=== PATIENT | male | born 1985 | race Caucasian/White ===

== ENCOUNTER 2017-02-17 10:56 | Emergency (ER) | payer SELFPAY ==
[~2017-02-17] VITALS: Ht 172.7 cm; Wt 97.7 kg
[2017-02-17 11:28] LABS: BASO # 0.1 x10^3/uL (0.0-0.2); BASO % 1 % (0-3); EOS # 0.2 x10^3/uL (0.0-0.7); EOS % 2 % (0-3); HEMATOCRIT 48.8 % (39.0-53.0); HEMOGLOBIN 16.9 g/dL (13.0-17.5); LYMPH # 1.6 x10^3/uL (1.0-4.8); LYMPH % 15 % (24-48); MEAN CORPUSCULAR HEMOGLOBIN 28 pg (25-35); MEAN CORPUSCULAR HGB CONC 35 g/dL (31-37); MEAN CORPUSCULAR VOLUME 82 fL (79-100); MONO # 0.8 x10^3/uL (0.0-1.1); MONO % 7 % (0-9); NEUT # 8.4 x10^3uL (1.8-7.7); NEUT % 76 % (31-73); PLATELET COUNT 246 x10^3/uL (140-400); RED BLOOD COUNT 5.94 x10^6/uL (4.30-5.70); RED CELL DISTRIBUTION WIDTH 13.6 % (11.5-14.5); WHITE BLOOD COUNT 11.1 x10^3/uL (4.0-11.0)
[2017-02-17] MEDS ORDERED: ONDANSETRON PF 4 MG/2 ML VIAL. IV ONE (11:30)
[2017-02-17] MEDS ORDERED: FAMOTIDINE 20 MG/2 ML VIAL IVP ONE (11:30)
[2017-02-17] MEDS ORDERED: KETOROLAC 30 MG/ML VIAL. IV ONE (11:30)
[2017-02-17] MEDS ORDERED: PROMETHAZINE 25 MG in IV NORMAL SALINE 50ML 50 ML IV PRN (11:30)
[2017-02-17] MEDS ORDERED: IV NORMAL SALINE 1,000ML 1,000 ML IV SCH (11:30)
[2017-02-17 11:40] LABS: ALBUMIN 4.5 g/dL (3.4-5.0); ALBUMIN/GLOBULIN RATIO 1.2 (1.0-1.7); CREATININE 1.5 mg/dL (0.7-1.3); GFR 53.9; POTASSIUM 4.7 mmol/L (3.5-5.1); TOTAL BILIRUBIN 0.4 mg/dL (0.2-1.0); TOTAL PROTEIN 8.3 g/dL (6.4-8.2)
--- NOTE | 2017-02-17 12:10 | RAD ---
Acute abdomen series History: Nausea, vomiting, diarrhea, weakness. Comparison: Abdomen radiograph 10/31/2014. Findings: Frontal view of the chest. Cardiac silhouette appears within normal limits for size. No pneumoperitoneum or pneumothorax is identified. No acute infiltrate is seen. Supine and upright views of the abdomen. No dilated loops of bowel are seen. Impression: No acute abnormality identified in the chest or abdomen.
[2017-02-17] MEDS: MORPHINE SULFATE 4 MG/ML DISP.SYRIN. IV/SQ PRN ×2 (12:14→12:58)
--- NOTE | 2017-02-17 12:23 | PHYS DOC ---
General Chief Complaint: ABDOMINAL PAIN Stated Complaint: N/V/D Time Seen by MD: 11:05 Source: patient, old records Exam Limitations: no limitations Problems: History of Present Illness Initial Comments Patient is a 31-year-old male who comes in the ED complaining of abdominal discomfort and nausea and vomiting. Patient states that very early this morning he awoke with nausea and lower abdominal discomfort. He reports nausea and vomiting since that time with by mouth intolerance. He has lower abdominal/left lower abdominal discomfort with a few watery stools this morning as well. She has not noted any blood in his emesis or his stools, denies recent travel or bad food exposure no insect bites or measured temperatures. He has had body aches chills appetite is intact however he hasn't eaten due to the nausea and vomiting. No pre-arrival treatment no known relationship of types of by mouth. No prior abdominal surgeries he has history of gastroenteritis in 2015 he was seen here records were reviewed. Patient states his symptoms are nearly identical to those he experienced in 2015 with a stomach virus. At that time CT scan was negative, I discussed imaging with the patient he feels unnecessary at this time have symptoms so mimicked his prior gastroenteritis. Timing/Duration: 4-6 hours Severity: severe Modifying Factors: worse with eating, improves with medication Associated Symptoms: diaphoresis, fever/chills, headaches, malaise, nausea/ vomiting, other Allergies: Coded Allergies: amoxicillin (Unverified Allergy, Unknown, 10/31/14) told by his mother Past Medical History Medical History: other (hypothyroidism, migraine headaches) Surgical History: other (right foot fracture repair) Social History Smoker: cigarettes Alcohol: occasionally Drugs: none Review of Systems Constitutional: see HPI Respiratory: denies cough, denies shortness of breath, denies wheezing Cardiovascular: denies chest pain, denies palpitations, denies syncope Gastrointestinal: see HPI Genitourinary: denies dysuria, denies frequency, denies hematuria Musculoskeletal: back pain, denies joint swelling, muscle pain, denies neck pain Psychiatric/Neurological: headache, denies numbness, denies paresthesia, denies weakness Hematologic/Lymphatic: denies blood clots, denies easy bleeding, denies easy bruising Physical Exam General Appearance: WD/WN, moderate distress Eyes: bilateral eye normal inspection, bilateral eye PERRL, bilateral eye EOMI Ear, Nose, Throat: hearing grossly normal, normal ENT inspection (dry membranes ) Neck: non-tender, supple Respiratory: normal breath sounds, no respiratory distress Cardiovascular: normal peripheral pulses, regular rate, rhythm Gastrointestinal: soft (nondistended, lower abdominal diffuse discomfort without focality negative McBurney and negative Arroyo, no masses or organomegaly noted.) Rectal: deferred Back: no CVA tenderness, no vertebral tenderness Extremities: non-tender, normal inspection 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 PHYSICIAN: FRANCIE CATHERINE DO REASON: n/v/d PROCEDURE: ACUTE ABDOMEN SERIES Acute abdomen series History: Nausea, vomiting, diarrhea, weakness. Comparison: Abdomen radiograph 10/31/2014. Findings: Frontal view of the chest. Cardiac silhouette appears within normal limits for size. No pneumoperitoneum or pneumothorax is identified. No acute infiltrate is seen. Supine and upright views of the abdomen. No dilated loops of bowel are seen. Impression: No acute abnormality identified in the chest or abdomen. DICTATED AND SIGNED BY: MARGA STEEL MD DATE: 02/17/17 1206 CC: PCP,NO; FRANCIE CATHERINE DO ~ Pertinent labs: WBC 11.1, BUN 11, creatinine 1.5 1238: Nausea vomiting relieved with antiemetics, patient still feels mildly nauseous but no further emesis. Discomfort has improved to 1/10, he is doing much better. We'll discharge home with antibiotics and dicyclomine as well as instructions for oral hydration and follow-up. Advised to stop smoking. Departure Time of Disposition: 12:40 Disposition: HOME, SELF-CARE Diagnosis: gastroenteritis, renal insuff, tobaccoism Condition: STABLE Patient Instructions: Smoking Hazards, Viral Gastroenteritis, [id number] Additional Instructions: Rest no strenuous activity. Off work through February 21. Clear liquids advance to bland diet slowly as tolerated. Aggressive hydration with Gatorade or water. Stop smoking seek medical assistance if necessary. Prescriptions: Zofran ODT for nausea vomiting, Phenergan suppositories for intractable vomiting, dicyclomine for cramping. Follow-up with your doctor on Tuesday for recheck of your symptoms and kidney function blood tests. Return to the ED with new or changing symptoms FRANCIE CATHERINE DO Feb 17, 2017 12:23
[2017-02-17] MEDS ORDERED: DICY20TA3 PO (12:42)
[2017-02-17] MEDS ORDERED: ONDA4TAB10 PO (12:42)
[2017-02-17] MEDS ORDERED: PROM25SU32 RC (12:42)
[2017-02-17] MEDS ORDERED: DICYCLOMINE 20 MG/2 ML AMPUL. IM ONE (12:45)
[2017-02-17 13:15] VITALS: BP 152/80
== END 2017-02-17 13:25 | disposition home or self-care (01) ==
LOC: ER 10:56
DX: K52.9 Noninfective gastroenteritis and colitis, unspecified (principal); N28.9 Disorder of kidney and ureter, unspecified; E03.9 Hypothyroidism, unspecified; G43.909 Migraine, unspecified, not intractable, without status migrainosus; F17.210 Nicotine dependence, cigarettes, uncomplicated; Z88.1 Allergy status to other antibiotic agents
CPT/HCPCS: 36415; 74022; 80053; 83690; 85027; 96365; 96372; 96375; 96376; 99285; G0480; J0500; J1885; J2270; J2405; J2550; S0028; J7030

== ENCOUNTER 2021-05-05 20:45 | Inpatient (IN) | payer SELFPAY ==
[~2021-05-05] VITALS: Ht 170.2 cm; Wt 91.7 kg
[~2021-05-05 20:45] MED LIST: DICY20TA3 PO; ONDA4TAB10 PO; PROM25SU32 RC
--- NOTE | 2021-05-05 21:19 | PHYS DOC ---
Past History Past Medical History: Other Past Surgical History: No Surgical History Smoking: Cigarettes Alcohol Use: None Drug Use: None Adult General Chief Complaint Chief Complaint: ABDOMINAL PAIN HPI HPI Patient is a 36-year-old male who presents with a chief complaint of left-sided flank pain 7 out of 10, sharp in nature, nausea and vomiting over the course of the day. States he never had anything like this before. Denies any fevers, chest pain, shortness of breath, dysuria, hematuria, blood in the stool or diarrhea. Denies any Covid/flu/cold symptoms. Denies any recent traumas, travels, known ill contacts. Review of Systems Review of Systems Review of systems otherwise unremarkable except noted in HPI Current Medications Current Medications Current Medications Medications (Trade) Dose Ordered Sig/Avelino Start Time Stop Time Status Last Admin Dose Admin Iohexol (Omnipaque 300 Mg/ml) 75 ml 1X ONCE 05/05/21 21:30 05/05/21 21:31 UNV Lactated Ringer's 1,000 ml @ 1,000 mls/hr 1X ONCE 05/05/21 21:30 05/05/21 22:29 Metoclopramide HCl (Reglan Vial) 10 mg 1X ONCE 05/05/21 21:30 05/05/21 21:31 Morphine Sulfate (Morphine 4mg Syringe) 4 mg 1X ONCE 05/05/21 21:30 05/05/21 21:31 Ondansetron HCl (Zofran) 4 mg 1X ONCE 05/05/21 21:30 05/05/21 21:31 Allergies Allergies Allergies Coded Allergies Type Severity Reaction Last Updated Verified amoxicillin Allergy Unknown 10/31/14 No Physical Exam Physical Exam Constitutional: Well developed, well nourished, no acute distress, non-toxic appearance. [] HENT: Normocephalic, atraumatic, oropharynx moist, no oral exudates, nose normal. [] Eyes: conjunctiva normal, no discharge. [] Neck: Normal range of motion, no tenderness, supple, no stridor. [] Cardiovascular:Heart rate regular rhythm, no murmur [] Lungs & Thorax: Bilateral breath sounds clear to auscultation [] Abdomen: soft, no tenderness, no masses, no pulsatile masses. [] Skin: Warm, dry, no erythema, no rash. [] Back: no CVA tenderness. [] Extremities: No tenderness, no cyanosis, no clubbing, ROM intact, no edema. [] Neurologic: Alert and oriented X 3, no focal deficits noted. [] Psychologic: Affect normal, judgement normal, mood normal. [] Current Patient Data Vital Signs Vital Signs Date Time Temp Pulse Resp B/P (MAP) Pulse Ox O2 Delivery O2 Flow Rate FiO2 05/05/21 20:55 97.8 86 16 103/48 (66) 98 05/05/21 20:49 Room Air EKG EKG [] Radiology/Procedures Radiology/Procedures [] Heart Score C/O Chest Pain: No Risk Factors: Risk Factors: DM, Current or recent (<one month) smoker, HTN, HLP, family history of CAD, obesity. Risk Scores: Risk Factors: DM, Current or recent (<one month) smoker, HTN, HLP, family history of CAD, obesity. Course & Med Decision Making Course & Med Decision Making Patient is a 36-year-old male who presents with left-sided flank pain, nausea and vomiting Vital signs not concerning. Physical exam noted above. IVs placed with IV fluid resuscitation begun. Given morphine for pain and Zofran/Reglan for nausea. Laboratory analysis notable for neutrophilic leukocytosis, elevated creatinine, elevated lactate. CT notable for a three mm stone at the left UVJ with only mild obstructive uropathy otherwise no acute findings. Patient started on antibiotics and continued on pain control. Admitted to [facility] after talking to Dr. Sheriff for continued IV antibiotics, IV fluids, repeat labs, pain and nausea control given that a 3 mm stone at the UVJ junction should pass shortly. Discussed all findings with patient who agreed with plan of admission. [] Dragon Disclaimer Dragon Disclaimer This electronic medical record was generated, in whole or in part, using a voice recognition dictation system. Departure Departure: Impression: Primary Impression: Ureterolithiasis Additional Impressions: RYANNE (acute kidney injury) Leukocytosis Hematuria Disposition: ADMITTED INPATIENT Admitting Physician: Almita Bailey Condition: IMPROVED Referrals: PCP,NO (PCP) Problem Qualifiers DIANNA AUSTIN MD May 05, 2021 21:19
[2021-05-05] MEDS ORDERED: ONDANSETRON PF 4 MG/2 ML VIAL. IVP ONE (21:30)
[2021-05-05] MEDS ORDERED: IOHEXOL 300 MG/ML 75 ML VIAL. IV ONE (21:30)
[2021-05-05] MEDS ORDERED: IV RINGERS SOLUTION,LACTATED 1,000 ML IV ONE ×2 (21:30→23:30)
[2021-05-05] MEDS ORDERED: METOCLOPRAMIDE HCL 10 MG/2 ML VIAL. IVP ONE (21:30)
[2021-05-05] MEDS ORDERED: MORPHINE SULFATE 4 MG/ML DISP.SYRIN. IV ONE ×2 (21:30→23:30)
[2021-05-05 21:40] LABS: BASO # 0.2 x10^3/uL (0.0-0.2); BASO % 1 % (0-3); EOS # 0.1 x10^3/uL (0.0-0.7); EOS % 1 % (0-3); HEMATOCRIT 47.8 % (39.0-53.0); HEMOGLOBIN 16.3 g/dL (13.0-17.5); LYMPH # 1.9 x10^3/uL (1.0-4.8); LYMPH % 11 % (24-48); MEAN CORPUSCULAR HEMOGLOBIN 28 pg (25-35); MEAN CORPUSCULAR HGB CONC 34 g/dL (31-37); MEAN CORPUSCULAR VOLUME 83 fL (79-100); MONO % 6 % (0-9); NEUT % 81 % (31-73); PLATELET COUNT 352 x10^3/uL (140-400); RED BLOOD COUNT 5.78 x10^6/uL (4.30-5.70); RED CELL DISTRIBUTION WIDTH 14.6 % (11.5-14.5); WHITE BLOOD COUNT 17.3 x10^3/uL (4.0-11.0)
[2021-05-05 21:41] LABS: CALCIUM 9.8 mg/dL (8.5-10.1); CREATININE 1.9 mg/dL (0.7-1.3); GFR 39.9
[2021-05-05 21:46] LABS: ALBUMIN 4.6 g/dL (3.4-5.0); ALBUMIN/GLOBULIN RATIO 1.1 (1.0-1.7); TOTAL BILIRUBIN 0.5 mg/dL (0.2-1.0); TOTAL PROTEIN 8.9 g/dL (6.4-8.2)
[2021-05-05 22:14] LABS: % BANDS 2 % (0-9); % LYMPHS 12 % (24-48); % MONOS 7 % (0-10); % SEGS 79 % (35-66); PLT ESTIMATE ADEQUATE (ADEQUATE)
--- NOTE | 2021-05-05 22:17 | RAD ---
CT abdomen pelvis with contrast dated 05/05/2021. COMPARISON: 10/31/2014. CLINICAL INDICATION: Left-sided abdominal pain. TECHNIQUE: Contiguous axial imaging the abdomen pelvis performed after the administration of 60 cc Omnipaque 300 . One or more of the following individualized dose reduction techniques were utilized for this examinat ion: 1. Automated exposure control 2. Adjustment of the mA and/or kV according to patient size 3. Use of iterative reconstruction technique FINDINGS: There is a 3 mm calcific stone at the left UVJ with mild proximal dilation of the left ureter and lef t pelvicalyceal system. No calcific stone within the substance of either kidney. No right ureteral st one or right hydronephrosis. Liver is of diffuse low density suggesting mild fatty infiltration. No apparent mass. Biliary tree no rmal in caliber. Gallbladder unremarkable. Spleen is normal in size. Pancreas and adrenal glands are unremarkable. Unopacified GI tract normal in caliber and contour. No focal bowel wall thickening. No inflammatory s tranding in the mesentery. The appendix is normal in caliber. No ascites or lymphadenopathy. Images of pelvis show nondistended urinary bladder. There is a suggestion of mild diffuse bladder wal l thickening. No free fluid or pelvic adenopathy. Prostate gland is normal in size. Bone windows show no acute findings. There are bilateral pars defects at L5. No significant listhesis . Mild spondylotic changes at the lower lumbar levels. IMPRESSION: 1. There is a 3 mm calcific stone at the left UVJ with mild obstructive uropathy. 2. Otherwise no acute findings. Normal appendix. 3. Mild fatty infiltration the liver. 4. Bilateral pars defects at L5-S1. No significant listhesis. Electronically signed by: Eliazar Zavala MD (05/05/2021 10:14 PM) [facility]
[2021-05-05 23:00] LABS: BILIRUBIN,URINE SMALL (NEG); CLARITY,URINE CLEAR; COLOR,URINE YELLOW; GLUCOSE,URINE NEG (NEG); NITRITE,URINE NEG (NEG)
[2021-05-05 23:01] LABS: BACTERIA,URINE 0 /HPF (0-FEW); SQUAMOUS EPITHELIAL CELL,UR FEW /LPF; WBC,URINE OCC /HPF (0-4)
[2021-05-05] MEDS ORDERED: CIPROFLOXACIN 400MG PREMIX 200 ML IV ONE (23:30)
[2021-05-06] MEDS ORDERED: ONDANSETRON PF 4 MG/2 ML VIAL. IVP PRN
[2021-05-06] MEDS ORDERED: MORPHINE SULFATE 4 MG/ML DISP.SYRIN. IVP PRN
[2021-05-06] MEDS ORDERED: IV NORMAL SALINE 1,000ML 1,000 ML IV SCH
[2021-05-06] MEDS ORDERED: ACETAMINOPHEN 325 MG TABLET PO PRN
[2021-05-06] MEDS ORDERED: ONDANSETRON PF 4 MG/2 ML VIAL. IVP ONE (02:00)
[2021-05-06] MEDS ORDERED: MORPHINE SULFATE 4 MG/ML DISP.SYRIN. IV ONE (02:00)
[2021-05-06 02:11] VITALS: BP 171/108
[2021-05-06 05:34] VITALS: BP 144/73
--- NOTE | 2021-05-06 07:20 | RAD ---
XR CHEST 1V INDICATION: Reason: admit workup / Spl. Instructions: / History: . COMPARISON STUDY: None. FINDINGS: Lungs: Normal lung volume. No pulmonary mass or consolidation. The tracheobronchial tree and hilar st ructures are normal. Pleura: No pleural effusion or pneumothorax. Heart and Mediastinum: The cardiomediastinal silhouette is normal. The great vessels of the thorax ar e normal. Bones and Soft Tissues: The bones and soft tissues are within normal limits. IMPRESSION: No acute cardiopulmonary process. Electronically signed by: Jimmy Mcgraw MD (05/06/2021 7:18 AM) [facility]
--- NOTE | 2021-05-06 12:13 | HP ---
ADMIT DATE: 05/06/2021 ADMISSION HISTORY AND PHYSICAL ATTENDING PHYSICIAN: Dayo Bro M.D. CHIEF COMPLAINT: Flank pain and nausea. HISTORY OF PRESENT ILLNESS: The patient is a 36-year-old gentleman admitted through the ED with new onset of severe left-sided flank pain 7/10, sharp in nature with associated nausea and vomiting over the course of the day. He has never had anything like this before. In the workup, blood work showed slight elevation of creatinine due to dehydration. CT of the abdomen showed a 3 mm calcific stone at the ureteropelvic junction with some associated mild hydronephrosis. He was admitted then with renal colic. PAST MEDICAL HISTORY: Unremarkable for any chronic illnesses. He has never had a stone before. There is no gout.. MEDICATIONS: He is not on any prescription medications. ALLERGIES: AMOXICILLIN. SOCIAL HISTORY: He is a nonsmoker, nondrinker. FAMILY HISTORY: Parents are alive in their mid 50s. He is , stays home and takes care of the kids. He is currently unemployed. REVIEW OF SYSTEMS: Significant for the localized symptoms, nausea. He denied any recent COVID exposure. All other systems reviewed and turned to be negative. PHYSICAL EXAMINATION: GENERAL: When I saw him, this is a pleasant young male. By the time I saw him, he had passed stone. VITAL SIGNS: Showed blood pressure 144/73 mmHg, temperature 98.4 degrees Fahrenheit, pulse 60 and regular. He was afebrile. Oxygen saturation 97% on room air. HEENT: Head is without trauma. Pupils are reactive. Sclerae nonicteric. Oropharynx clear. NECK: Supple, no bruits. LUNGS: Clear. CARDIOVASCULAR: Showed regular heart tones. ABDOMEN: Soft. EXTREMITIES: Without edema. NEUROLOGIC: Findings focally intact. Speech is fluent. SKIN: Warm and dry. PERTINENT LABORATORY STUDIES: Hemoglobin 16.3 g/dL in a hemoconcentrated state, white count 17,300. Creatinine is 1.9 mg%. Nonfasting blood sugar 129. BUN 22. Potassium 4.0 mEq. ASSESSMENT: 1. A 36-year-old gentleman with nephrolithiasis. 2. Renal colic. 3. Mild hydronephrosis with calcific stone identified in the left ureteropelvic junction. 4. Mild dehydration with renal insufficiency. PLAN: 1. Admit to the inpatient unit. 2. IV hydration. 3. Pain and nausea control. 4. Diet as tolerated. 5. We will strain his urine. CHRISTIANO/EDA/MILADYS DR: CHRISTIANO/olamide TID: [id number]
--- NOTE | 2021-05-06 19:07 | DS ---
DATE OF DISCHARGE: 05/06/2021 ATTENDING PHYSICIAN: Dr. Bro. FINAL DISCHARGE DIAGNOSES: 1. Left ureterolithiasis. 2. Mild hydronephrosis, resolved. 3. Chronic kidney disease due to dehydration. 4. Nausea and vomiting, resolved. HISTORY AND PHYSICAL: The patient, age 36, has a kidney stone that was identified by CT scan at the left ureteropelvic junction measuring 3 mm. He was admitted with nephrolithiasis. PHYSICAL EXAMINATION: Please see the dictated note. PERTINENT LABORATORY AND X-RAY STUDIES: Admission creatinine was 1.9 mg percent. He did receive gentle IV hydration. Follow up blood work will be done as an outpatient at [facility]. He goes there for followup. COURSE IN THE HOSPITAL: The patient was admitted, started on IV fluids. The stone was right at the ureterovesical junction in the past without any difficulty. Nausea resolved. Abdominal pain resolved. He was discharged home the next day with encouragement for Gatorade orally. No new medications. No pain medicine as necessary. I recommend a chemistry panel in 1 week to recheck his slightly elevated creatinine. The patient was then discharged from our hospital in stable condition with explicit drug and followup care. CHRISTIANO/YFN DR: Mychal TID: [id number]
[2021-05-07] MEDS ORDERED: CIPROFLOXACIN 400MG PREMIX 200 ML IV ONE (11:00)
== END 2021-05-06 11:29 | disposition home or self-care (01) | DRG 694 ==
LOC: ER 20:45 → 1 SOUTH 05-06 00:41
PROVIDERS: ADMIT Internal Medicine; ATTEND Internal Medicine
DX: N13.2 Hydronephrosis with renal and ureteral calculous obstruction (principal); N17.9 Acute kidney failure, unspecified; D72.829 Elevated white blood cell count, unspecified; E86.0 Dehydration; N18.9 Chronic kidney disease, unspecified; Z87.891 Personal history of nicotine dependence; Z20.822 Contact with and (suspected) exposure to COVID-19
CPT/HCPCS: 36415; 71045; 74177; 80053; 81001; 83605; 85007; 85025; 87040; 87426; 96361; 96365; 96375; 96376; 99406; J0744; J2270; J2405; J2765; J7120; Q9967; U0003; 99285-25; J7030